=== PATIENT | female | born 1985 | race Caucasian/White ===

== ENCOUNTER 2019-05-01 08:18 | Emergency (ER) | payer SELFPAY ==
[~2019-05-01] VITALS: Ht 170.2 cm; Wt 50.0 kg
[2019-05-01 08:31] VITALS: Ht 170.2 cm; Wt 50.0 kg
[2019-05-01] MEDS ORDERED: OMEPRAZOLE20 M1 PO (08:32)
[2019-05-01] MEDS ORDERED: BENADRYL25 MG PO (08:33)
[2019-05-01 09:31] LABS: APPEARANCE CLEAR (CLEAR); BILIRUBIN NEGATIVE (NEGATIVE); COLOR YELLOW (YELLOW); GLUCOSE NEGATIVE (NEGATIVE); KETONE NEGATIVE (NEGATIVE); NITRITE NEGATIVE (NEGATIVE); PROTEIN NEGATIVE (NEGATIVE); UROBILINOGEN NORMAL (NORMAL)
[2019-05-01 09:32] LABS: BACTERIA FEW /hpf (NEGATIVE); EPITHELIAL CELLS RARE /hpf (0-5); RED CELLS - URINE NONE SEEN /hpf (0-5); WHITE CELLS - URINE OCC /hpf (NEGATIVE)
[2019-05-01 09:39] LABS: HEMATOCRIT 37.1 % (36.0-48.0); HEMOGLOBIN 12.9 g/dL (12-16); LYMPHOCYTES 35.8 % (15-50); MCH 32.3 pg (26.0-34.0); MCHC 34.8 g/dL (31.0-37.0); MEAN PLATELET VOLUME 8.8 fL (7.4-10.4); NEUTROPHILS 51.8 % (40-80); RBC 3.99 10x6/uL (4.00-5.40); RDW 12.1 % (11.5-14.5); WBC 4.4 10x3/uL (4.8-10.8)
[2019-05-01 09:42] LABS: PLATELET COUNT 226 10x3/uL (130-400)
[2019-05-01 09:43] LABS: ALBUMIN 4.6 g/dL (3.4-5.0); ALKALINE PHOSPHATASE 69 U/L (46-116); ALT (SGPT) 18 U/L (10-68); BILIRUBIN - TOTAL 0.77 mg/dL (0.2-1.3); CALC OSMOLALITY 278 mosm/kg (275-300); CALCIUM 9.6 mg/dL (8.5-10.1); CARBON DIOXIDE 31.7 mmol/L (21.0-32.0); CHLORIDE - SERUM 103 mmol/L (98-107); GLUCOSE 79 mg/dL (74-106); POTASSIUM - SERUM 3.6 mmol/L (3.5-5.1); PROTEIN - SERUM 7.6 g/dL (6.4-8.2); SODIUM 141 mmol/L (136-145); UREA NITROGEN 9 mg/dL (7-18); eGFR NON AFRICAN AMERICAN 67 mL/min (90-120)
[2019-05-01 09:55] LABS: CKMB 0.3 U/L (0.0-3.6); CREATINE KINASE 82 UL (21-215); TROPONIN-I < 0.017 ng/mL (0.000-0.060)
[2019-05-01] MEDS ORDERED: CYCLOBENZAPRINE10 MG PO (12:31)
[2019-05-01] MEDS ORDERED: IBUPROFEN800 MG PO (12:31)
[2019-05-01] MEDS ORDERED: ACETAMINOPHEN500 M1 PO (12:31)
[2019-05-01] MEDS ORDERED: ZOFRAN ODT4 MG/UDTAB PO (12:34)
[2019-05-01 13:00] VITALS: BP 130/72
== END 2019-05-01 13:02 | disposition home or self-care (01) ==
LOC: D.ER 08:18
PROVIDERS: Family Medicine
DX: R07.9 Chest pain, unspecified (principal); M54.10 Radiculopathy, site unspecified

== ENCOUNTER 2019-08-31 15:57 | Emergency (ER) | payer SELFPAY ==
[~2019-08-31] VITALS: Ht 170.2 cm; Wt 47.7 kg
[~2019-08-31 15:57] MED LIST: ACETAMINOPHEN500 M1 PO; BENADRYL25 MG PO; CYCLOBENZAPRINE10 MG PO; IBUPROFEN800 MG PO; OMEPRAZOLE20 M1 PO; ZOFRAN ODT4 MG/UDTAB PO
[2019-08-31 16:16] VITALS: BP 130/81; Ht 170.2 cm; Wt 47.7 kg
[2019-08-31] MEDS ORDERED: OMNICEF300 MG PO (17:44)
== END 2019-08-31 18:22 | disposition home or self-care (01) ==
LOC: D.ER 15:57
DX: B08.5 Enteroviral vesicular pharyngitis (principal); J02.9 Acute pharyngitis, unspecified

== ENCOUNTER 2020-01-20 20:06 | Emergency (ER) | payer OTHER, SELFPAY ==
[~2020-01-20] VITALS: Ht 170.2 cm; Wt 50.0 kg
[~2020-01-20 20:06] MED LIST changes: +OMNICEF300 MG PO
[2020-01-20 20:24] VITALS: BP 122/81; Ht 170.2 cm; Wt 50.0 kg
[2020-01-20] MEDS ORDERED: METHOCARBAMOL500 MG PO (21:50)
[2020-01-20] MEDS ORDERED: VOLTAREN75 MG PO (21:50)
== END 2020-01-20 21:58 | disposition home or self-care (01) ==
LOC: D.ER 20:06
DX: R51 Headache (principal); M79.18 Myalgia, other site; V89.2XXA Person injured in unspecified motor-vehicle accident, traffic, initial encounter; Y93.9 Activity, unspecified; Y92.9 Unspecified place or not applicable; M54.2 Cervicalgia; K21.9 Gastro-esophageal reflux disease without esophagitis

== ENCOUNTER 2020-11-09 10:43 | Observation (INO) | payer MEDICAID ==
[~2020-11-09] VITALS: Ht 170.2 cm; Wt 58.1 kg
--- NOTE | ~2020-11-09 | EEG ---
PATIENT:EDITH MENDIETA MEDICAL RECORD: [id number] DATE OF : 83 LOCATION:D.221 D.MS ADMISSION DATE: 11/09/20 REFERRING PHYSICIAN: INTERPRETING PHYSICIAN: BRIONNA BAR MD DATE OF SERVICE: 11/10/2020 ROOM: [facility] ORDERED BY: Dr. Bar. 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 No biting or incontinence. The patient was started on Keppra. PROCEDURE: EEG done as a routine bedside portable recording using the standard 10-20 international electrode system. A 16-channel was used with 17th as EKG. Photic stimulation and hyperventilation were done as activation procedures. DESCRIPTION OF PROCEDURE: EEG opens with the patient awake, alert with the record displaying a fairly low background amplitude at 13-15 Hz with prominent beta artifact obscuring the background on occasion. Occasional bilateral independent single theta slow waves were seen, some of high voltage and sharp contour, especially prominent in the right parietal and temporal regions, occasional right hemispheric delta was seen in the same distributions and occasional bilateral independent single sharp waves were seen, right hemisphere more than left and some of the right hemispheric sharps were of quite high voltage. No epileptiform changes such as spike, polyspike or spike and wave was seen. Photic stimulation yielded a semi-driving response with more prominent theta, delta and sharp activities during photic stimulation, some of the right parietal theta appeared semi-rhythmic at 5 Hz. No other distinct epileptiform change was seen. Hyperventilation yielded a similar buildup and enhancement of the right hemispheric theta and delta, again no epileptiform change was seen distinctly. IMPRESSION: Moderately abnormal EEG with above findings most likely suggestive to postsurgical changes in area of craniotomy primarily. No distinct active seizure focus was observed with this recording. TRANSINT:[id number] Voice Confirmation ID: [id number] DOCUMENT ID: [id number] BRIONNA BAR MD CC: [id number] DICTATION DATE: 11/10/20 1227 FEATURES EDITOR: 11/10/20 1318 ADM IN [place] [id number] [place] [address]
[~2020-11-09 10:43] MED LIST changes: +HYDROCODON-ACE1 EA10 PO; +HYDROCODON-ACE1 EAC7 PO; +METHOCARBAMOL500 MG PO; +VISTARIL25 MG PO; +VOLTAREN75 MG PO; +ZOFRAN4 MG PO
[2020-11-09] MEDS ORDERED: MEGACE 20 MG TA20 MG PO (10:55)
[2020-11-09] MEDS ORDERED: GABAPENTIN100 MG PO (10:56)
[2020-11-09] MEDS ORDERED: CLARITIN 10 MG10 MG PO (10:56)
--- NOTE | 2020-11-09 11:00 | NUR ---
RECEIVED AFTER "FALLING OUT" AT WORK AND HAVING POSSIBLE SEIZURE. HX OF BRAIN CA WITH SURGERY BY DR. BOOGIE IN 07/01. VS STABLE. LABS DRAWN, UA RECEIVED, CT OF HEAD, C SPINE AND SHOULDER XRAY OF RIGHT ELBOW AND HIP.
[2020-11-09 11:27] LABS: ANION GAP 12.8 mmol/L (8-16); CALCIUM 9.1 mg/dL (8.5-10.1); CARBON DIOXIDE 29.4 mmol/L (21.0-32.0); HEMATOCRIT 36.7 % (36.0-48.0); HEMOGLOBIN 12.5 g/dL (12-16); LYMPHOCYTE ABS# 1.12 10x3/uL (1.18-3.74); MCH 32.6 pg (26.0-34.0); MCHC 34.1 g/dL (31.0-37.0); MCV 95.8 fL (80.0-100.0); MEAN PLATELET VOLUME 8.6 fL (7.4-10.4); NEUTROPHIL ABS# 3.15 10x3/uL (1.56-6.13); POTASSIUM - SERUM 3.2 mmol/L (3.5-5.1); RBC 3.83 10x6/uL (4.00-5.40); RDW 13.4 % (11.5-14.5); WBC 5.4 10x3/uL (4.8-10.8)
[2020-11-09 11:33] LABS: BILIRUBIN - TOTAL 0.39 mg/dL (0.2-1.3); PROTEIN - SERUM 8.6 g/dL (6.4-8.2)
[2020-11-09 11:37] LABS: PLATELET COUNT 346 10x3/uL (130-400)
[2020-11-09 11:52] LABS: NITRITE NEGATIVE (NEGATIVE)
[2020-11-09 11:56] LABS: BILIRUBIN NEGATIVE (NEGATIVE); KETONE NEGATIVE (NEGATIVE); UROBILINOGEN NORMAL mg/dL (< 2)
[2020-11-09 11:57] LABS: BACTERIA MODERATE HPF (NONE SEEN); SQUAMOUS EPITHELIAL 0-5 HPF (0-4); WHITE CELLS - URINE OCC HPF (0-4)
[2020-11-09 12:00] VITALS: BP 126/88
[2020-11-09 12:27] LABS: BASOPHILS 1 % (0-2); EOSINOPHILS 1 % (0-7); LYMPHOCYTES 28 % (15-50); MONOCYTES 15 % (2-11); NEUTROPHILS 51 % (40-80); PLATELET ESTIMATE NORMAL
[2020-11-09 13:19] VITALS: BP 122/80
[2020-11-09 14:18] VITALS: BP 118/82
--- NOTE | 2020-11-09 14:18 | NUR ---
REPORT CALLED TO JOSEFINA DOMÍNGUEZ ON MS - PT GOING TO ROOM 2960
[2020-11-09 15:28] VITALS: BP 112/71
[2020-11-10] VITALS: BP 102/56
[2020-11-10 03:09] VITALS: BP 103/136
[2020-11-10 04:00] VITALS: BP 102/59
[2020-11-10 06:53] LABS: BASOPHILS 0 % (0-2); EOSINOPHILS 2.1 % (0-7); HEMOGLOBIN 10.4 g/dL (12-16); IMMATURE GRANULOCYTES 3.6 % (0-5); LYMPHOCYTES 24.2 % (15-50); MCHC 32.5 g/dL (31.0-37.0); MEAN PLATELET VOLUME 9.1 fL (7.4-10.4); MONOCYTES 16.1 % (2-11); NEUTROPHIL ABS# 1.78 10x3/uL (1.56-6.13); PLATELET COUNT 325 10x3/uL (130-400); RBC 3.25 10x6/uL (4.00-5.40); RDW 13.5 % (11.5-14.5)
[2020-11-10 06:57] LABS: MCV 98.5 fL (80.0-100.0); WBC 3.3 10x3/uL (4.8-10.8)
[2020-11-10 07:22] LABS: ALBUMIN 3.8 g/dL (3.4-5.0); ALKALINE PHOSPHATASE 62 U/L (30-120); ALT (SGPT) 13 U/L (10-68); BILIRUBIN - TOTAL 0.52 mg/dL (0.2-1.3); CALCIUM 8.4 mg/dL (8.5-10.1); CARBON DIOXIDE 24.8 mmol/L (21.0-32.0); CHLORIDE - SERUM 104 mmol/L (98-107); CREATININE - SERUM 0.9 mg/dL (0.6-1.3); GLUCOSE 94 mg/dL (74-106); MAGNESIUM - SERUM 2.5 mg/dL (1.8-2.4); PHOSPHOROUS 3.5 mg/dL (2.5-4.9); PROTEIN - SERUM 6.8 g/dL (6.4-8.2); SODIUM 139 mmol/L (136-145); eGFR NON AFRICAN AMERICAN 75 mL/min (90-120)
[2020-11-10 07:23] LABS: CALC OSMOLALITY 276 mosm/kg (275-300); POTASSIUM - SERUM 3.9 mmol/L (3.5-5.1); UREA NITROGEN 11 mg/dL (7-18)
[2020-11-10 08:44] VITALS: BP 93/63
[2020-11-10 12:27] VITALS: BP 101/68
[2020-11-10 13:11] VITALS: Ht 170.2 cm; Wt 58.1 kg
[2020-11-10] MEDS ORDERED: KEPPRA1000 MG PO (13:14)
--- NOTE | 2020-11-10 14:37 | NUR ---
DISCHARGE INSTRUCTIONS,STATES UNDERSTANDING,IV DCD WITH CATH TIP INTACT/ WAITING ON RIDE FOR TRANSPORT HOME
--- NOTE | 2020-11-10 16:00 | NUR ---
RIDE HERE FOR TRANSPORT HOME. CALL FOR TRANSPORTER
--- NOTE | 2020-11-10 16:04 | NUR ---
LEFT UNIT VIA WHEELCHAIR FOR TRANSPORT HOME
== END 2020-11-10 16:05 | disposition home or self-care (01) ==
LOC: D.ER 10:43 → OBSVTIME 12:16 → D.MS 12:16
PROVIDERS: Family Medicine; ADMIT Emergency Medicine; ATTEND Emergency Medicine
DX: R55 Syncope and collapse (principal); R56.9 Unspecified convulsions; C96.6 Unifocal Langerhans-cell histiocytosis; E87.6 Hypokalemia; D72.819 Decreased white blood cell count, unspecified